=== PATIENT | male | born 1960 | race Caucasian/White ===

== ENCOUNTER 2023-06-17 17:56 | Emergency (ER) | payer OTHER ==
[2023-06-17 18:14] VITALS: BP 136/58; PULSE 81; RESP 18; TEMP 98.3; BMI 23.6
== END 2023-06-17 21:06 | disposition home or self-care (01) ==
LOC: JER 17:56
DX: S22.31XA Fracture of one rib, right side, initial encounter for closed fracture (principal); V00.181A Fall from other rolling-type pedestrian conveyance, initial encounter
CPT/HCPCS: 71046-TC-FY; 71101-TC-RT-FY; 99283-25